=== PATIENT | male | born 1980 | race Caucasian/White ===

== ENCOUNTER 2019-02-21 14:21 | Emergency (ER) | payer OTHER ==
[~2019-02-21] VITALS: Ht 188 cm; Wt 104.3 kg
[2019-02-21 14:35] VITALS: BP 131/84
[2019-02-21] MEDS ORDERED: MELO15TA23 PO (15:41)
--- NOTE | 2019-02-21 15:41 | PHYS DOC ---
Past Medical History Past Medical History: Other Additional Past Medical Histor: HIV POSITIVE Past Surgical History: Cholecystectomy Alcohol Use: Rarely Drug Use: None Adult General Chief Complaint Chief Complaint: BACK PAIN OR INJURY HPI HPI Patient is a 38 year old male who presents to the ER with complaints of R shoulder pain and tenderness that shoots down his right arm and into his mid back. Pt states that the sx started 2 weeks ago. He was seen at urgent care a week ago and prescribed flexeril and a medrol dosepak. Pt reports the pain decreased only a little bit with these medications and he ran out of them yesterday. 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 He denies any numbness, tingling, or weakness of his right arm. Pt states that he has an appointment to see his PCP next week but they are unable to see him any sooner. PT takes valium once a day for anxiety. He currently rates his pain a 8/10 on the pain scale, he describes the pain as burning that increases the longer he is at work. ROS Pt denies any recent injury, fever, cough, shortness of breath, or weakness of the right arm. He reports right lateral lower cervical paraspinal TTP. All other ROS is neg unless otherwise noted in HPI. Review of Systems Review of Systems See Above Allergies Allergies Allergies Coded Allergies Type Severity Reaction Last Updated Verified latex Allergy Severe RASH 02/21/19 Yes morphine Allergy Severe ANXIETY 02/21/19 Yes Physical Exam Physical Exam See Above Constitutional: Well developed, well nourished, no acute distress, non-toxic appearance, obese. [] HENT: Normocephalic, atraumatic, bilateral external ears normal, oropharynx moist, no oral exudates, nose normal. [] Eyes: PERRLA, EOMI, conjunctiva normal, no discharge. [] Neck: Normal range of motion, no stridor; right lower cervical paraspinal TTP, no crepitus, no bony tenderness Cardiovascular:Heart rate regular rhythm, no murmur [] Lungs & Thorax: Bilateral breath sounds clear to auscultation [] Skin: Warm, dry, no erythema, no rash. [] Back: No bony tenderness, no CVA tenderness. [] Extremities: No tenderness, no cyanosis, no clubbing, ROM intact, no edema. [] Neurologic: Alert and oriented X 3, normal motor function, normal sensory function, no focal deficits noted. [] Psychologic: Affect normal, judgement normal, mood normal. [] Current Patient Data Vital Signs Vital Signs Date Time Temp Pulse Resp B/P (MAP) Pulse Ox O2 Delivery O2 Flow Rate FiO2 02/21/19 14:35 98.1 99 18 131/84 (100) 98 Room Air 98.1 EKG EKG [] Radiology/Procedures Radiology/Procedures [] Course & Med Decision Making Course & Med Decision Making Pertinent Labs and Imaging studies reviewed. (See chart for details) dx: Acute cervical radiculopathy Prescription written for meloxicam. Pt instructed to Increase his 5 mg valium to 1 tablet every 8 hours as needed for pain. Pt instructed to stop taking Naproxen while taking Meloxicam. Follow up with your doctor next week as planned. Return to the ER if your symptoms worsen. [] Dragon Disclaimer Dragon Disclaimer This electronic medical record was generated, in whole or in part, using a voice recognition dictation system. Departure Departure Impression: Primary Impression: Cervical radiculopathy, acute Disposition: 01 HOME, SELF-CARE Condition: STABLE Referrals: UNKNOWN PCP NAME (PCP) Patient Instructions: Cervical Radiculopathy, [id number] Additional Instructions: Increase your valium to 1 tablet every 8 hours as needed for pain. Fill the prescription and use as directed, stop taking Naproxen while taking Meloxicam. Follow up with your doctor next week as planned. Return to the ER if your symptoms worsen. Scripts Meloxicam (MELOXICAM) 15 Mg Tablet 1 TAB PO DAILY for 10 Days, #10 TAB 0 Refills Prov: YAAKOV VERGARA [employer]KEEP[employer] SUPERVISOR 02/21/19 YAAKOV VERGARA [employer]KEEPING SUPERVISOR Feb 21, 2019 15:41
== END 2019-02-21 16:08 | disposition home or self-care (01) ==
LOC: ER 14:21
DX: M54.12 Radiculopathy, cervical region (principal); M54.6 Pain in thoracic spine; Z91.040 Latex allergy status; Z88.5 Allergy status to narcotic agent
CPT/HCPCS: 99283